=== PATIENT | male | born 1970 | race Two or more races ===

== ENCOUNTER 2019-05-12 13:36 | Emergency (ER) | payer OTHER ==
[~2019-05-12] VITALS: Ht 162.6 cm; Wt 76.2 kg
[2019-05-12] MEDS ORDERED: CLARITIN10 MG (13:43)
== END 2019-05-12 17:04 | disposition home or self-care (01) ==
LOC: ER 13:36
DX: J06.9 Acute upper respiratory infection, unspecified (principal)